=== PATIENT | male | born 1960 | race Caucasian/White ===

== ENCOUNTER 2017-01-19 06:55 | Day surgery (SDC) | payer BC, OTHER ==
[2017-01-19] MEDS ORDERED: Propofol 200 MG/20 ML SDV ONE (07:16)
[2017-01-19] MEDS ORDERED: Lidocaine 2% 5 ML SDV ONE (07:16)
[2017-01-19] MEDS ORDERED: Sodium Chloride 0.9% 20 ML ONE (07:31)
[2017-01-19] MEDS ORDERED: Bupivacaine 0.25%/EPINEPHrine 1:200,000 10 ML SDV ONE (07:31)
--- NOTE | 2017-01-19 07:39 | PCM.PREANE ---
Preanesthetic Assessment - Anesthesia/Transfusion/Family Hx Anesthesia History: Prior Anesthesia Without Reaction Family History of Anesthesia Reaction: No Transfusion History: No Prior Transfusion(s) - Review of Systems General: No Symptoms Pulmonary: No Symptoms Cardiovascular: No Symptoms Gastrointestinal: No symptoms Neurological: No Symptoms Other: Reports: None - Physical Assessment NPO Status Date: 01/18/17 Height: 1.78 m Weight: 129.274 kg ASA Class: 2 Mental Status: Alert & Oriented x3 Airway Class: Mallampati = 2 Dentition: Reports: Normal Dentition Lungs: Clear to auscultation, Normal respiratory effort Cardiovascular: Regular Rate, Regular Rhythm - Allergies Allergies/Adverse Reactions: Allergies Allergy/AdvReac Type Severity Reaction Status Date / Time No Known Allergies Allergy Verified 01/17/17 12:12 - Acknowledgements Anesthesia Type Planned: MAC Pt an Appropriate Candidate for the Planned Anesthesia: Yes Alternatives and Risks of Anesthesia Discussed w Pt/Guardian: Yes Pt/Guardian Understands and Agrees with Anesthesia Plan: Yes Additional Comments: DON, uses CPAP, HTN, HLD, MRSA by medical records from [facility] pt unaware of any prior clinical infection requiring antibiotics. PreAnesthesia Questionnaire HEENT History: Reports: None Cardiovascular History: Reports: High cholesterol, Hypertension Respiratory History: Reports: Sleep apnea Other Respiratory History: uses CPAP Gastrointestinal History: Reports: GERD Endocrine/Metabolic History: Reports: Obesity/BMI 30+ Immunologic History: Reports: Other (see below) Other Immunologic History: hx MRSA - Past Surgical History Head Surgeries/Procedures: Reports: None HEENT Surgical History: Reports: Tonsillectomy Cardiovascular Surgical History: Reports: Other (see below) Other Cardiovascular Surgeries/Procedures: hx angiogram, no stents GI Surgical History: Reports: Appendectomy Musculoskeletal Surgical History: Reports: Other (see below) Other Musculoskeletal Surgeries/Procedures:: hx knee surgery - SUBSTANCE USE Smoking Status *Q: Former Smoker Recreational Drug Use History: No - HOME MEDS Home Medications: Home Meds Aspirin [[place] Aspirin] 81 mg PO DAILY 01/17/17 [History] Bisoprolol [Zebeta] 5 mg PO DAILY 01/17/17 [History] Lisinopril/Hydrochlorothiazide [Lisinopril-Hctz 20-25 mg Tab] 1 mg PO DAILY 09/23 [History] Simvastatin [Zocor] 10 mg PO DAILY 01/17/17 [History] Verapamil [[place] SR] 240 mg PO DAILY 01/17/17 [History] - CURRENT (IN HOUSE) MEDS Current Meds: Current Medications Hydrocodone Bitart/Acetaminophen ([place] 325-5 Mg) 1 tab PO Q4H PRN PRN Reason: Pain Bupivacaine HCl/Epinephrine Bitart (Marcaine 0.25%/Epinephrine 1:200,000) 10 ml INJECT ONETIME ONE Stop: 01/19/17 08:01 Lactated Ringer's (Ringers, Lactated) 1,000 mls @ 125 mls/hr IV ASDIRECTED GABI Cefazolin Sodium/Dextrose 2 gm (/ Premix) 50 mls @ 100 mls/hr IV ONETIME ONE Stop: 01/19/17 08:29 Discontinued Medications Bupivacaine HCl/Epinephrine Bitart (Marcaine 0.25%/Epinephrine 1:200,000) Confirm Administered Dose 20 ml .ROUTE .STK-MED ONE Stop: 01/19/17 07:32 Sodium Chloride (Normal Saline) Confirm Administered Dose 20 mls @ as directed .ROUTE .STK-MED ONE Stop: 01/19/17 07:32 Lidocaine (Xylocaine-Mpf 2%) Confirm Administered Dose 5 ml .ROUTE .STK-MED ONE Stop: 01/19/17 07:17 Propofol (Diprivan 20 Ml) Confirm Administered Dose 200 mg .ROUTE .STK-MED ONE Stop: 01/19/17 07:17 Sufentanil Citrate (Sufenta) Confirm Administered Dose 50 mcg .ROUTE .STK-MED ONE Stop: 01/19/17 07:21
[2017-01-19] MEDS ORDERED: Lactated Ringers 1,000 ML IV SCH (08:00)
[2017-01-19] MEDS ORDERED: Bupivacaine 0.25%/EPINEPHrine 1:200,000 10 ML SDV INJECT ONE (08:00)
[2017-01-19] MEDS ORDERED: ceFAZolin 2 GM in Premix Bag 1 BAG IV ONE (08:00)
[2017-01-19] MEDS ORDERED: Acetaminophen/HYDROcodone 325-5 MG Tab PO PRN (08:00)
[2017-01-19] MEDS ORDERED: Clindamycin Phosphate in D5W 600 MG in Premix Bag 50 BAG IV ONE ×2 (08:11)
[2017-01-19] MEDS ORDERED: diphenhydrAMINE 50 MG/ML SDV ONE (08:30)
--- NOTE | 2017-01-19 09:35 | PCM48HPAN ---
Post Anesthesia Note - EVALUATION WITHIN 48HRS OF ANESTHETIC Vital Signs in Normal Range: Yes Patient Participated in Evaluation: Yes Respiratory Function Stable: Yes Airway Patent: Yes Cardiovascular Function Stable: Yes Hydration Status Stable: Yes Pain Control Satisfactory: Yes Nausea and Vomiting Control Satisfactory: Yes Mental Status Recovered: Yes
--- NOTE | 2017-01-19 09:35 | PCM.POSTAN ---
POST ANESTHESIA ASSESSMENT - MENTAL STATUS Mental Status: alert, oriented - RESPIRATORY Respiratory Status: respiratory rate WNL, airway patent - CARDIOVASCULAR CV Status: pulse rate WNL, blood pressure stable - GASTROINTESTINAL GI Status: no symptoms - POST OP HYDRATION Hydration Status: adequate & stable
[2017-01-19 12:57] VITALS: BP 110/57
--- NOTE | 2017-01-19 22:20 | OR ---
SURGEON: MICHELLE FRANCOIS MD DATE OF PROCEDURE: 01/19/2017 PREOPERATIVE DIAGNOSIS: Right middle finger trigger finger. POSTOPERATIVE DIAGNOSIS: Right middle finger trigger finger. PROCEDURE: Right middle finger trigger finger release. INDICATIONS: Mr. Ahn is a 56-year-old gentleman, seen today for right middle finger trigger finger. He has previously had an injection and this did not work well for him. Risks and benefits of release were discussed and he was in agreement to proceed. Risks were including, but not limited to, bleeding, infection, damage to underlying or overlying structures, possible need for future interventions and possible scarring. PROCEDURE IN DETAIL: After informed consent was obtained and placed on the chart, the patient was brought to the operating theater and laid in the supine position. After adequate MAC anesthesia was obtained, the area was prepped and draped in normal fashion. A time-out was completed to confirm side and site. Attention was then paid to infiltration of local anesthesia and the arm was exsanguinated and tourniquet was insufflated to 200 mmHg. Attention was then paid to dissection over the A1 blossom in the right middle finger. Dissection was carried down through the skin and subcutaneous tissues using blunt dissection until the tendon was visualized. A 15 blade was used to incise the sheath. Dissection was carried distally and proximally until complete release. Once adequately released, the wound was irrigated. This was sutured with 5-0 nylon stitches in a horizontal mattress fashion and dressed with Xeroform, fluffs, and a Kerlix gauze dressing, and a 2-inch AMOR wrap. The patient tolerated the procedure well. All counts of needles were correct at the end the case. FOLLOWUP INSTRUCTIONS: The patient will see us in clinic in 2 weeks sooner with any problems, questions, or concerns. He was given a prescription for [place] for pain control. HEGGTHE / MODL /[id number]
== END 2017-01-19 10:05 | disposition home or self-care (01) ==
LOC: MW.SDS 06:55
PROVIDERS: ATTEND Plastic Surgery
PROC: 0LN70ZZ Release Right Hand Tendon, Open Approach (ICD-10-PCS; principal; 2017-01-19)
DX: M65.331 Trigger finger, right middle finger (principal); G47.33 Obstructive sleep apnea (adult) (pediatric); E78.00 Pure hypercholesterolemia, unspecified; E78.5 Hyperlipidemia, unspecified; I10 Essential (primary) hypertension; K21.9 Gastro-esophageal reflux disease without esophagitis; E66.9 Obesity, unspecified; Z86.14 Personal history of Methicillin resistant Staphylococcus aureus infection; Z87.891 Personal history of nicotine dependence; Z90.49 Acquired absence of other specified parts of digestive tract; Z90.89 Acquired absence of other organs; Z98.890 Other specified postprocedural states; Z79.82 Long term (current) use of aspirin; Z79.899 Other long term (current) drug therapy
CPT/HCPCS: 26055; J1200; J7120; 01810; J2704